=== PATIENT | female | born 1935 | race Hispanic/Latino ===

== ENCOUNTER 2021-04-27 11:19 | Emergency (ER) | payer MEDICARE, OTHER ==
[~2021-04-27] VITALS: Ht 167.6 cm; Wt 94.8 kg
[2021-04-27] MEDS ORDERED: ASPIRIN EC81 MG PO (11:32)
[2021-04-27] MEDS ORDERED: TETANUS/DIPHTHERIA TOX ADULT 0.5 ML SYR IM ONE (11:45)
[2021-04-27] MEDS ORDERED: HUMALOG MI100 UNIT/2 SQ (11:58)
[2021-04-27] MEDS ORDERED: NOVOLOG100 UNIT/1 SC (11:58)
[2021-04-27] MEDS ORDERED: LASIX40 MG PO (11:58)
[2021-04-27] MEDS ORDERED: ISOSORBIDE DINI30 MG (11:58)
[2021-04-27] MEDS ORDERED: NEURONTIN300 MG PO (11:58)
[2021-04-27] MEDS ORDERED: PANTOPRAZOLE SO40 MG PO (11:58)
[2021-04-27] MEDS ORDERED: METOPROLOL TAR100 MG PO (11:58)
[2021-04-27] MEDS ORDERED: MECLIZINE HCL12.5 MG PO (11:58)
[2021-04-27] MEDS ORDERED: SINGULAIR10 MG PO (11:58)
[2021-04-27] MEDS ORDERED: SPIRONOLACTONE25 MG PO (11:58)
[2021-04-27] MEDS ORDERED: ATORVASTATIN CA20 MG PO (11:58)
[2021-04-27] MEDS ORDERED: LISINOPRIL10 MG PO (11:58)
[2021-04-27] MEDS ORDERED: LORATADINE10 MG PO (11:58)
[2021-04-27] MEDS ORDERED: LEVOTHYROXINE150 MCG (11:58)
[2021-04-27] MEDS ORDERED: TETANUS/DIPHTHERIA TOX ADULT 0.5 ML SYR ONE (12:11)
== END 2021-04-27 13:54 | disposition home or self-care (01) ==
LOC: FSED 11:42
DX: S01.01XA Laceration without foreign body of scalp, initial encounter (principal); W01.198A Fall on same level from slipping, tripping and stumbling with subsequent striking against other object, initial encounter; Y93.01 Activity, walking, marching and hiking; Y92.89 Other specified places as the place of occurrence of the external cause; I10 Essential (primary) hypertension; E11.9 Type 2 diabetes mellitus without complications; E78.5 Hyperlipidemia, unspecified; E03.9 Hypothyroidism, unspecified; J45.909 Unspecified asthma, uncomplicated; Z95.810 Presence of automatic (implantable) cardiac defibrillator; Z95.1 Presence of aortocoronary bypass graft
CPT/HCPCS: 70450; 90471; 90714; 96372; 99283